=== PATIENT | male | born 1960 | race Caucasian/White ===

== ENCOUNTER 2016-07-03 06:36 | Day surgery (SDC) | payer BC ==
[~2016-07-03 06:36] MED LIST: Dextrose 5%-0.45% NaCl 1,000 ML IV SCH; Midazolam 1 MG/ML 2 ML SDV ONE; Sodium Chloride 0.9% 10 ML Syringe FLUSH PRN; fentaNYL 100 MCG/2 ML SDV ONE
[2016-07-03] MEDS ORDERED: fentaNYL 100 MCG/2 ML SDV IV ONE ×3 (07:26→10:04)
[2016-07-03] MEDS ORDERED: Midazolam 1 MG/ML 2 ML SDV IV ONE ×7 (07:27→10:04)
[2016-07-03 09:05] VITALS: BP 120/68
--- NOTE | 2016-07-03 12:40 | OR ---
DATE: 07/03/2016 PROCEDURE: Total colonoscopy. INSTRUMENT USED: CF-H180AL Olympus video colonoscope. PREMEDICATIONS: 1. Fentanyl 100 mcg intravenous. 2. Versed 4 mg intravenous. 3. 2 L nasal O2 cannula. The procedure was done under pulse oximetry, BP recording, and director of cardiac cath lab. INDICATION: The patient with high-risk family history for colon cancer. Screening colonoscopic examination is done for detection of any polypoid lesions and removal, endoscopic hemostasis therapy if needed. DESCRIPTION OF PROCEDURE: Initial rectal exam was unremarkable. Rigid anoscopy was normal. The colonoscope was passed with ease. Diverticular opening was noted in the distal left colon. The scope was passed with ease up to the ileocecal area, photographs were taken of the normal-appearing cecum, identified by landmarks of appendiceal orifice and double-bulged ileocecal folds. No bleeding was noted from any of the visualized areas at the commencement of the examination. No stricture. No vascular ectasia. No large isolated ulcerations seen. No evidence of diffuse inflammatory bowel disease in the form of friability, contact bleeding, or ulcerations. No polyp or tumor mass identified. Probing the proximal sides of folds and flexures using adequate distention and clearing of the stool material, withdrawal of the scope was made, cecum to rectum time over 6 minutes. No bleeding was noted from any of the visualized areas at the completion of the examination. IMPRESSION: Diverticulosis. The patient tolerated the procedure well. [facility] /[id number]
== END 2016-07-03 09:30 | disposition home or self-care (01) ==
LOC: DL.ENDO 06:36
PROVIDERS: ATTEND Internal Medicine Gastroenterology
DX: Z12.11 Encounter for screening for malignant neoplasm of colon (principal); K57.30 Diverticulosis of large intestine without perforation or abscess without bleeding; Z98.890 Other specified postprocedural states
CPT/HCPCS: 45378; J2250; J3010; J7042

== ENCOUNTER 2016-09-20 21:47 | Emergency (ER) | payer BC ==
[2016-09-20] MEDS ORDERED: Aspirin 81 MG Tab.Chew PO ONE (22:12)
[2016-09-20 22:15] LABS: SODIUM,NA 142 mmol/L (138-146)
[2016-09-20 22:16] LABS: CHLORIDE,CL 100 mmol/L (98-109)
--- NOTE | 2016-09-20 22:26 | EDM.PDOC ---
ED HPI GENERAL MEDICAL PROBLEM - General Chief Complaint: Chest Pain Stated Complaint: TIGHTNESS IN CHEST Time Seen by Provider: 09/20/16 22:15 Source of Information: Reports: Patient History Limitations: Reports: No Limitations - History of Present Illness INITIAL COMMENTS - FREE TEXT/NARRATIVE: Sudden onset of chest pain with dyspnea at 1400 today while doing light yardwork. It waxed and waned throughout the afternoon. No previous cardiac history. Onset: Today, Sudden Onset Time: 14:00 Duration: Intermittent, Recurring, Resolved Prior to Arrival, Waxing/Waning Location: Reports: Chest Quality: Reports: Dull, Pressure Severity: Mild Improves with: Reports: None Worsens with: Reports: None Context: Reports: Activity Associated Symptoms: Reports: Shortness of Breath Treatments DOCK HAND: Reports: NSAIDS Left Upper Chest Pain Score (Numeric/FACES): 2 - Related Data Allergies Allergy/AdvReac Type Severity Reaction Status Date / Time No Known Allergies Allergy Verified 09/20/16 22:14 Home Meds: Home Meds Cholecalciferol (Vitamin D3) [Vitamin D3] 1 tab PO DAILY 06/28/16 [History] Multivitamin [Multivitamins] 1 tab PO DAILY 06/28/16 [History] Woodward-3 Fatty Acids/Fish Oil [Woodward-3 Fish Oil 1,000 mg Sfgl] 2,000 mg PO DAILY 06/28/16 [History] Sildenafil [Revatio] 1 tab PO DAILY 06/28/16 [History] Triamcinolone Acetonide [Triamcinolone Acetonide 0.1% Crm] 1 squirt TOP BID 03/04 [History] Ubidecarenone [Coenzyme Q-10] 100 mg PO DAILY 06/28/16 [History] Past Medical History HEENT History: Reports: None Cardiovascular History: Reports: None Respiratory History: Reports: None Gastrointestinal History: Reports: None Genitourinary History: Reports: Prostate Disorder Musculoskeletal History: Reports: None Neurological History: Reports: None Psychiatric History: Reports: None Endocrine/Metabolic History: Reports: None Hematologic History: Reports: None Immunologic History: Reports: None Oncologic (Cancer) History: Reports: Prostate Dermatologic History: Reports: Psoriasis - Infectious Disease History Infectious Disease History: Reports: Chicken Pox, Mumps - Past Surgical History Head Surgeries/Procedures: Reports: None Other Oncologic Surgeries/Procedures: surgery for prostate cancer Social & Family History - Tobacco Use Smoking Status *Q: Never Smoker - Caffeine Use Caffeine Use: Reports: Soda Other Caffeine Use: rare - Alcohol Use Days Per Week of Alcohol Use: 2 Number of Drinks Per Day: 3 Total Drinks Per Week: 6 - Recreational Drug Use Recreational Drug Use: No ED ROS GENERAL - Review of Systems Review Of Systems: ROS reveals no pertinent complaints other than HPI. Constitutional: Reports: No Symptoms ED EXAM, GENERAL - Physical Exam Exam: See Below Exam Limited By: No Limitations General Appearance: Alert, WD/WN, No Apparent Distress Eye Exam: Bilateral Eye: Normal Inspection Ears: Normal External Exam Throat/Mouth: Normal Inspection, Normal Lips, Normal Teeth, Normal Gums, Normal Oropharynx, Normal Voice, No Airway Compromise Head: Atraumatic, Normocephalic Neck: Normal Inspection, Supple, Non-Tender, Full Range of Motion Respiratory/Chest: No Respiratory Distress, Lungs Clear, Normal Breath Sounds, No Accessory Muscle Use, Chest Non-Tender Cardiovascular: Normal Peripheral Pulses, Regular Rate, Rhythm, No Edema, No Gallop, No JVD, No Murmur, No Rub Peripheral Pulses: 2+: Radial (L), Radial (R), Dorsalis Pedis (L), Dorsalis Pedis (R) GI/Abdominal: Normal Bowel Sounds, Soft, Non-Tender, No Organomegaly, No Distention, No Abnormal Bruit, No Mass (Male) Exam: Deferred Rectal (Males) Exam: Deferred Back Exam: Normal Inspection, Full Range of Motion, NT Extremities: Normal Inspection, Normal Range of Motion, Non-Tender, Normal Capillary Refill, No Pedal Edema Neurological: Alert, Oriented, CN II-XII Intact, Normal Cognition, Normal Gait, Normal Reflexes, No Motor/Sensory Deficits Psychiatric: Normal Affect, Normal Mood Skin Exam: Warm, Dry, Intact, Normal Color EKG INTERPRETATION EKG Date: 09/20/16 Time: 21:53 Rhythm: NSR Rate (Beats/Min): 67 [place]: Normal P-Wave: Present QRS: Normal ST-T: Normal QT: Normal Comparison: NA - No Prior EKG EKG Interpretation Comments: Normal EKG, slightly limited by patient movement. Course - Vital Signs Last Recorded V/S: Last Vital Signs Temp 37.1 C 09/20/16 21:55 Pulse 64 09/20/16 22:42 Resp 16 09/20/16 22:42 BP 133/82 09/20/16 22:42 Pulse Ox 97 09/20/16 22:42 - Orders/Labs/Meds Orders: Active Orders 24 hr Category Date Time Status EKG Documentation Completion [RC] URGENT Care 09/20/16 21:48 Active Labs: Laboratory Tests 09/20/16 09/20/16 Range/Units 22:04 22:04 WBC 7.4 (5.0-10.0) 10^3/uL RBC 5.78 (4.6-6.2) 10^6/uL Hgb 16.9 (14.0-18.0) g/dL Hct 47.4 (40.0-54.0) % MCV 82.0 (80-100) fL MCH 29.2 (27.0-34.0) pg MCHC 35.7 H (33.0-35.0) g/dL Plt Count 317 (150-450) 10^3/uL Neut % (Auto) 49.1 (42.2-75.2) % Lymph % (Auto) 36.7 (20.5-50.1) % [place] % (Auto) 9.7 H (2-8) % Eos % (Auto) 4.1 H (1.0-3.0) % Baso % (Auto) 0.4 (0.0-1.0) % Sodium 142 (138-146) mmol/L Potassium 4.0 (3.5-4.9) mmol/L Chloride 100 (98-109) mmol/L Carbon Dioxide 28 (24-29) mmol/L Anion Gap 18.0 BUN 16 (8-26) mg/dL Creatinine 0.9 (0.6-1.3) mg/dL Est Cr Clr Drug Dosing 104.81 mL/min Estimated GFR (MDRD) > 60 Glucose 94 (70-105) mg/dL Calcium 1.19 Troponin I < 0.02 (0.00-0.02) ng/ml Meds: Medications Discontinued Medications Generic Name Dose Route Start Last Admin Trade Name Freq PRN Reason Stop Dose Admin Aspirin 324 mg 09/20/16 22:12 09/20/16 22:18 Aspirin PO 09/20/16 22:13 324 mg ONETIME ONE Administration - Re-Assessments/Exams Free Text/Narrative Re-Assessment/Exam: 09/20/16 22:34 ED notes were reviewed and I agree with assessment and treatment initiated by CW. Free Text/Narrative Re-Assessment/Exam: 09/20/16 22:46 Patient continues to be pain free. He was informed of CXR, EKG, and lab results. He was discharged home in medically stable condition and advised to follow up with his PCP next week and to return to the ER if he has return of his chest pain. Departure - Departure Time of Disposition: 22:48 Disposition: Home, Self-Care 01 Condition: Good Clinical Impression: Non-cardiac chest pain Instructions: Nonspecific Chest Pain, [id number] Forms: ED Department Discharge Care Plan Goals: Patient was advised of EKG, CXR, and lab results. Patient should monitor self for increased chest pain and if there are returning or worsening symptoms, he should follow up with Primary Care Facility or return to ER. - My Orders Last 24 Hours: My Active Orders 09/20/16 21:48 EKG Documentation Completion [RC] URGENT - Assessment/Plan Last 24 Hours: My Active Orders 09/20/16 21:48 EKG Documentation Completion [RC] URGENT
[2016-09-20 22:59] VITALS: BP 137/79
--- NOTE | 2016-09-22 12:42 | EKG ---
09/20/2016 - DEMETRIA RUBY - A 12-lead EKG shows normal sinus rhythm with heart rate of 67. No significant ST elevation or ST depression noted on this 12-lead EKG. Nonspecific ST changes noted on leads V2 and V3. [facility] /[id number]
== END 2016-09-20 23:08 | disposition home or self-care (01) ==
LOC: DL.ED 21:47
DX: R07.89 Other chest pain (principal); Z79.899 Other long term (current) drug therapy
CPT/HCPCS: 36415; 71010; 80048; 84484; 85025; 93005; 99285; A9270

== ENCOUNTER 2022-01-23 06:02 | Day surgery (SDC) | payer BC ==
[~2022-01-23 06:02] MED LIST changes: -Dextrose 5%-0.45% NaCl 1,000 ML IV SCH; -Midazolam 1 MG/ML 2 ML SDV ONE; +Sodium Chloride 0.9% 10 ML Syringe FLUSH SCH; -fentaNYL 100 MCG/2 ML SDV ONE
[2022-01-23] MEDS ORDERED: fentaNYL 100 MCG/2 ML SDV IV ONE (06:03)
[2022-01-23] MEDS ORDERED: Midazolam 1 MG/ML 2 ML SDV IV ONE (06:03)
[2022-01-23] MEDS: Dextrose 5%-0.45% NaCl 1,000 ML IV SCH (06:39)
[2022-01-23] MEDS ORDERED: fentaNYL 100 MCG/2 ML SDV ONE (08:08)
[2022-01-23] MEDS ORDERED: Midazolam 1 MG/ML 2 ML SDV ONE (08:08)
[2022-01-23] MEDS: fentaNYL 100 MCG/2 ML SDV IV ONE ×2 (09:07→09:08)
[2022-01-23] MEDS: Midazolam 1 MG/ML 2 ML SDV IV ONE ×6 (09:09→09:14)
[2022-01-23 09:47] VITALS: PULSE 57
[2022-01-23 10:59] VITALS: BP 122/67
== END 2022-01-23 10:40 | disposition home or self-care (01) ==
LOC: DL.ENDO 06:02
PROVIDERS: ATTEND Internal Medicine Gastroenterology
DX: Z12.11 Encounter for screening for malignant neoplasm of colon (principal); K57.30 Diverticulosis of large intestine without perforation or abscess without bleeding; E78.1 Pure hyperglyceridemia; E55.9 Vitamin D deficiency, unspecified; L57.0 Actinic keratosis; L40.9 Psoriasis, unspecified; M19.90 Unspecified osteoarthritis, unspecified site; D75.1 Secondary polycythemia; E80.6 Other disorders of bilirubin metabolism; Z79.899 Other long term (current) drug therapy; Z98.890 Other specified postprocedural states
CPT/HCPCS: J2250; J3010; J7042